=== PATIENT | male | born 1960 | race Hispanic/Latino ===

== ENCOUNTER 2019-01-25 07:06 | Observation (INO) | payer SELFPAY ==
[~2019-01-25] VITALS: Ht 165.1 cm; Wt 91.6 kg
[~2019-01-25 07:06] MED LIST: BP MEDICATIONS; LISINOPRIL-HCT1 EAC2 PO
--- OUTSIDE RECORDS SUMMARY | 2019-01-25 07:10 | XMS REPORT ---
Author Author [facility] Address Unknown Phone Unavailable Care Team Providers Care Production Tester Name Role Phone Unavailable Unavailable Problems This patient has no known problems. Allergies, Adverse Reactions, Alerts This patient has no known allergies or adverse reactions. Medications This patient has no known medications. Encounters Start Date/Time End Date/Time Encounter Type Admission Type Attending [facility] Facility Care Department Encounter ID 2019-02-02 00:00:00 2019-02-02 00:00:00 Outpatient [facility] [id number] 2018-12-25 09:08:25 2018-12-25 09:08:25 Outpatient [facility] [id number] 2018-12-24 09:05:17 2018-12-24 09:05:17 Outpatient [facility] [id number] 2018-12-18 08:08:12 2018-12-18 08:08:12 Outpatient [facility] [id number] 2018-12-16 07:25:31 2018-12-16 07:25:31 Outpatient [facility] [id number] 2018-11-30 00:00:00 2018-11-30 00:00:00 Outpatient [facility] [id number] 2018 08:50:46 2018 08:50:46 Outpatient [facility] [id number] 2018-11-11 00:00:00 2018-11-11 00:00:00 Outpatient [facility] [id number] 2018-10-26 11:24:00 2018-10-26 11:24:00 Outpatient [facility] [id number] 2018-10-26 11:02:37 2018-10-26 11:02:37 Outpatient [facility] [id number] 2018-10-26 09:49:56 2018-10-26 09:49:56 Outpatient [facility] [id number] 2018-10-26 00:00:00 2018-10-26 00:00:00 Outpatient [facility] [id number] 2017-09-18 00:00:00 2017-09-18 00:00:00 Outpatient [facility] [id number] 2017-09-05 11:38:51 2017-09-05 11:38:51 Outpatient [facility] [id number] 2017-09-05 09:49:20 2017-09-05 09:49:20 Outpatient [facility] [id number] 2017-06-10 07:17:54 2017-06-10 07:17:54 Outpatient [facility] [id number] 2017-04-21 00:00:00 2017-04-21 00:00:00 Outpatient [facility] [id number] 2017-03-20 00:00:00 2017-03-20 00:00:00 Outpatient [facility] [id number] 2017-01-07 11:11:06 2017-01-07 11:11:06 Outpatient [facility] [id number] 2017-01-07 09:43:15 2017-01-07 09:43:15 Outpatient [facility] [id number] 2017-01-07 00:00:00 2017-01-07 00:00:00 Outpatient [facility] [id number]
[2019-01-25] MEDS ORDERED: ASPIRIN 81 MG CHEW TAB PO ONE ×2 (07:30→09:45)
[2019-01-25 07:51] LABS: BASOPHILS % 0.6 % (0.0-1.0); EOSINOPHILS # (AUTO) 0.2 (0.0-0.4); EOSINOPHILS % 2.6 % (0.0-6.0); HEMATOCRIT 42.7 % (38.2-49.6); HEMOGLOBIN 14.3 g/dL (14.0-18.0); LYMPHOCYTES # (AUTO) 1.6 (1.0-3.2); MEAN CORPUSCULAR HEMOGLOBIN 30.4 pg (28-32); MEAN CORPUSCULAR HGB CONC 33.5 g/dL (31-35); MEAN CORPUSCULAR VOLUME 90.9 fL (81-99); MONOCYTES # (AUTO) 0.5 (0.2-0.8); MONOCYTES % 6.8 % (4.4-11.3); NEUTROPHILS # (AUTO) 4.2 (2.1-6.9); NEUTROPHILS % 64.5 % (38.7-80.0); PLATELET COUNT 273 x10e3/uL (140-360); RED CELL DISTRIBUTION WIDTH 12.5 % (11.7-14.4)
[2019-01-25 08:09] LABS: ALANINE AMINOTRANSFERASE 35 IU/L (0-55); ALBUMIN 4.1 g/dL (3.5-5.0); ALBUMIN/GLOBULIN RATIO 1.4 (0.8-2.0); ALKALINE PHOSPHATASE 103 IU/L (40-150); ANION GAP 10.5 mmol/L (8-16); BLOOD UREA NITROGEN 11 mg/dL (7-26); BUN/CREATININE RATIO 14 (6-25); CALCIUM 9.4 mg/dL (8.4-10.2); CARBON DIOXIDE 28 mmol/L (22-29); CHLORIDE 105 mmol/L (98-107); CREATINE KINASE 129 IU/L (30-200); CREATININE, SERUM 0.81 mg/dL (0.72-1.25); EST GLOMERULAR FILTRATION RATE > 60 ML/MIN (60-); GLUCOSE 105 mg/dL (74-118); POTASSIUM 3.5 mmol/L (3.5-5.1); SODIUM 140 mmol/L (136-145)
--- NOTE | 2019-01-25 09:03 | Diagnostic Imaging Report ---
EXAMINATION: CHEST SINGLE (PORTABLE) INDICATION: Chest pain COMPARISON: None FINDINGS: LINES/TUBES:EKG leads overlie the chest. LUNGS:The lungs are well-inflated. No focal consolidation or pulmonary edema. PLEURA:No pleural effusion or pneumothorax. MEDIASTINUM:The cardiomediastinal silhouette appears normal in size and shape. BONES/SOFT TISSUES:No acute osseous injury. ABDOMEN:No free air under the diaphragm. IMPRESSION: No focal pneumonia or pulmonary edema. Signed by: Diane Barragan MD on 01/25/2019 9:00 AM
[2019-01-25] MEDS ORDERED: DIOVAN80 MG PO (09:57)
[2019-01-25] MEDS ORDERED: PROVENTIL HFA6.7 GM (09:57)
[2019-01-25] MEDS ORDERED: ALBUTEROL/IPRATROPIUM 3 ML NEB NEB PRN (10:15)
[2019-01-25 11:00] VITALS: BP 130/75
--- NOTE | 2019-01-25 13:00 | NUR ---
PT RECEIVED FROM ER. EDUCATED PT ABOUT FALL PRECAUTIONS. CALL LIGHT WITH IN EASY REACH. INSTRUCTED PT TO USE CALL LIGHT FOR ALL THE NEEDS. PT VERBALIZED UNDERSTANDING. BED IS LOW AND LOCKED. SIDE RAILS X2. PT DENIES NEEDS AT THIS TIME.
--- NOTE | 2019-01-25 13:30 | NUR ---
DR. Ab BAILEY AT BEDSIDE. CONSULT DR. DARWIN FLYNN.
[2019-01-25 14:00] VITALS: BP 130/75
[2019-01-25] MEDS ORDERED: METHYLPREDNISOLONE SOD SUCC 40 MG/ML VIAL 1ML IV NR (14:00)
[2019-01-25] MEDS: LEVOFLOXACIN 500MG/D5W 100ML 100 ML IV SCH (14:31)
[2019-01-25] MEDS ORDERED: SODIUM CHLORIDE 0.9% 250ML 250 ML ONE (14:35)
[2019-01-25] MEDS: ALBUTEROL/IPRATROPIUM 3 ML NEB NEB SCH ×2 (14:46→18:55)
[2019-01-25 15:00] VITALS: BP 158/70
[2019-01-25 16:00] VITALS: BP 158/70
[2019-01-25 17:28] LABS: CREATINE KINASE MB 1.1 ng/mL (0-5.0)
--- NOTE | 2019-01-25 19:00 | NUR ---
BEDSIDE SHIFT REPORT GIVEN TO THE VIDEOGRAPHER RN. PT DENIED FURTHER NEEDS.
--- NOTE | 2019-01-25 19:28 | NUR ---
Patient received sitting up in bed. AAO x 4. Patient had no complaints of pain. Respirations even and non-labored. Fall precautions implemented. Patient instructed to call for assistance when needed. Call light within reach.
[2019-01-25 19:45] VITALS: BP 113/60
--- NOTE | 2019-01-25 20:12 | Consultation ---
DATE OF CONSULTATION: 01/25/2019 Cardiology Consultation INDICATION: Chest pain. HISTORY OF PRESENT ILLNESS: Mr. Kamara is a healthy 58-year-old gentleman, admitted by Dr. Eusebio Reardon with chest pain and shortness of breath. He has some wheezing. His chest x-ray at the time of admission showed no acute abnormality without pneumonia. Cardiac enzymes are negative. EKG is normal. I have been asked to assess him further. PAST MEDICAL HISTORY: Hypertension. SOCIAL HISTORY: No smoking or drinking. MEDICATIONS: Reviewed. REVIEW OF SYSTEMS: Negative except as dictated in the History of Present Illness. PHYSICAL EXAMINATION: VITAL SIGNS: Afebrile, heart rate 60, blood pressure 130/75, and O2 saturation is 94%. CARDIOVASCULAR: Regular rhythm. S4 gallop. LUNGS: Clear to auscultation bilaterally. ABDOMEN: Soft. LABORATORY DATA: Serum creatinine is normal. Troponin is negative. EKG shows sinus rhythm. Telemetry shows sinus rhythm. ASSESSMENT: Atypical chest pain. RECOMMENDATIONS: Echocardiogram to evaluate for structural heart disease with exercise nuclear stress test once myocardial infarction has been ruled out. Recheck of cardiac enzymes. I thank, Dr. Reardon, for this consult. MD JOHN Qureshi/KRISTINE /[id number]
[2019-01-25 21:00] VITALS: BP 113/60
--- NOTE | 2019-01-25 21:57 | History and Physical ---
CHIEF COMPLAINT: 1. Cough. 2. Atypical chest pain. HISTORY OF PRESENT ILLNESS: This is a 58-year-old male with a past medical history of hypertension, who was in his usual state of health until a few weeks ago, he started developing some retrosternal chest pain with mild cough. There is no left arm pain. The pain is not increased with exertion. No shortness of breath. He has some cough. No back pain. No burning urination. No nausea. No vomiting. No diarrhea. No constipation. No hematemesis. No melena. ALLERGIES: NO KNOWN DRUG ALLERGY. PAST MEDICAL HISTORY: Hypertension. PAST SURGICAL HISTORY: History of cholecystectomy. HABITS: Denies smoking. Denies alcohol use. Denies illicit drug use. SOCIAL HISTORY: The patient is , lives with his . MEDICATIONS: He is on Diovan 80 mg p.o. daily. REVIEW OF SYSTEMS: CONSTITUTIONAL: Denies fatigue or weakness. HEENT: No diplopia. No blurring of vision. CARDIOPULMONARY: He has atypical chest pain. No shortness of breath. He has mild cough. ALIMENTARY SYSTEM: No nausea. No vomiting. GENITOURINARY: No dysuria. No hematuria. MUSCULOSKELETAL: No joint pain. CENTRAL NERVOUS SYSTEM: No focal weakness. PHYSICAL EXAMINATION: GENERAL: A 58-year-old male who is alert and oriented x3, in no gross distress. VITAL SIGNS: Temperature is 98.2, pulse 82, respiratory rate 18, blood pressure 130/84. HEENT: Head is atraumatic and normocephalic. Pupils bilaterally equal to light. Extraocular muscles intact. NECK: Supple. No JVD. No carotid bruit. LUNGS: Clear to auscultation and percussion bilaterally. No added sounds. HEART: S1 and S2. Regular rate and rhythm. No S3. No S4. No murmur. ABDOMEN: Soft, nontender. No guarding. No rigidity. EXTREMITIES: No pedal edema. Peripheral pulses 1+. CH[employer] DECORATOR: Grossly nonfocal. LABORATORY DATA: CBC, CMP normal. EKG normal sinus rhythm at 66 per minute. Chest x-ray normal. ASSESSMENT: 1. Atypical chest pain, rule out from bronchitis, rule out from gastroesophageal reflux disease, rule out from angina. 2. Hypertension. PLAN: Admit the patient to telemetry. IV Levaquin 500 mg daily, DuoNeb q.6 hours, Solu-Medrol 40 mg x1, and Protonix 40 mg daily. Cardiology consult with Dr. Toussaint. Case discussed with the patient and , total condition and prognosis. MD SHANNAN Castro/KRISTINE /[id number]
[2019-01-26] VITALS (7 sets, daily range): BP systolic 104–144; BP diastolic 56–78
--- NOTE | 2019-01-26 00:24 | NUR ---
Blood specimen sent to lab for analysis of cardiac enzymes.
[2019-01-26] MEDS: ALBUTEROL/IPRATROPIUM 3 ML NEB NEB SCH ×4 (01:15→19:30)
[2019-01-26 04:13] LABS: CREATINE KINASE 78 IU/L (30-200)
[2019-01-26 05:34] LABS: CHOL/HDL RATIO 6.7 (3.9-4.7)
[2019-01-26 06:19] LABS: FREE T4 (FREE THYROXINE) 0.77 ng/dL (0.8-1.8); THYROID STIMULATING HORMONE 0.593 uIU/mL (0.350-4.940)
--- NOTE | 2019-01-26 07:00 | NUR ---
Patient resting comfortably. Patient denies needs at this time. Shift report given to oncoming nurse.
--- NOTE | 2019-01-26 07:04 | NUR ---
walking rounds completed, received change of shift report from night clerk auditor RN, pt awake, alert, respirations even and nonlabored, no signs of distress.
[2019-01-26] MEDS: PANTOPRAZOLE SOD 40 MG TABEC PO SCH (07:30)
--- NOTE | 2019-01-26 08:36 | NUR ---
Spoke with Dr. Reardon regarding plan. Pt currently pending stress test today. Will discharge home if negative. Rx in chart.
[2019-01-26] MEDS: LEVOTHYROXINE SODIUM 25 MCG TABLET PO SCH (08:45)
[2019-01-26] MEDS: ASPIRIN 81 MG ENTERIC COATED PO SCH (09:00)
[2019-01-26] MEDS: VALSARTAN 80 MG TAB PO SCH (09:00)
[2019-01-26] MEDS ORDERED: ASPIRIN 325 MG TAB EC PO SCH ×2 (09:00)
[2019-01-26] MEDS ORDERED: POTASSIUM CHLORIDE 10MEQ EA PO ONE (09:10)
--- NOTE | 2019-01-26 09:19 | NUR ---
pt wheeled down to Nuclear Medicine for stress test via wheelchair; pt awake, alert, ambulatory, no s/s distress; left in stable condition.
[2019-01-26] MEDS ORDERED: REGADENOSON 0.4 MG/5 ML SYR IV ONE (09:46)
--- NOTE | 2019-01-26 11:13 | NUR ---
spoke with RT Edward regarding need for home O2 evaluation on pt prior to discharge.
--- NOTE | 2019-01-26 11:53 | NUR ---
PT ARRIVED BACK ON THE UNIT S/P STRESS TEST; PT AWAKE, ALERT, ORIENTED, BEING WHEELED BACK TO ROOM, IN STABLE CONDITION.
--- NOTE | 2019-01-26 15:05 | NUR ---
Visit made by the Spiritual Care Department Pastoral Visitor, Magaly Vigil. PV provided pastoral presence, prayer, hospitality, and supportive listening. Pastoral Visitor informed pt/family of the scope of Guest Service Host Services and availability. TAYLOR RUIZ Machine Slat Basket Maker Spiritual Care Department O: [phone] Pager: [phone] ([phone] number calling from)
[2019-01-26] MEDS: LEVOFLOXACIN 500MG/D5W 100ML 100 ML IV SCH (15:09)
--- NOTE | 2019-01-26 15:15 | NUR ---
Stress test completed. Pending results for discharge.
--- NOTE | 2019-01-26 17:30 | Myoview Stress Test ---
DATE OF STUDY: 01/25/2019 13:31:00 Stress Test - Treadmill ONLY PROCEDURE: Lexiscan nuclear stress test. TECHNIQUE: The patient was stressed using 1 minute intravenous infusion of Lexiscan. Rest and stress Myoview imaging was obtained. Resting heart rate 108 beats per minute, resting blood pressure 138/84. Following Lexiscan infusion, no EKG changes noted. Both nuclear imaging and resting stress is normal, and normal contractility of the left ventricle. CONCLUSIONS: 1. Normal Lexiscan nuclear stress test without evidence of ischemia or infarction. 2. Left ventricular ejection fraction 68%. MD JOHN Qureshi/MODL /[id number]
--- NOTE | 2019-01-26 19:20 | NUR ---
Patient received lying in bed. AAO x 4. No acute distress noted. master welder in place. Safety measures in place. Call light within reach.
[2019-01-26] MEDS ORDERED: ATORVASTATIN 10 MG TAB PO SCH (21:00)
[2019-01-27] MEDS: ALBUTEROL/IPRATROPIUM 3 ML NEB NEB SCH ×2 (00:30→07:10)
[2019-01-27 00:58] VITALS: BP 121/59
[2019-01-27 04:47] VITALS: BP 127/66
[2019-01-27] MEDS: LEVOTHYROXINE SODIUM 25 MCG TABLET PO SCH (06:15)
--- NOTE | 2019-01-27 07:00 | NUR ---
Patient resting comfortably. Shift report given to oncoming nurse.
--- NOTE | 2019-01-27 07:06 | NUR ---
received change of shift report, walking rounds completed, pt resting in bed, respirations even and nonlabored, no s/s distress.
[2019-01-27 08:06] VITALS: BP_SYST 143; BP_SYST 145; BP_DIAS 63; BP_DIAS 76
[2019-01-27 08:07] VITALS: BP 127/66
--- NOTE | 2019-01-27 08:21 | NUR ---
GAVE PACKET OF INFORMATION WITH COMM[employer]ITY [employer] FOR ASSISTANCE WITH LOW TO NO INCOME TO PATIENT. RESOURCES THAT PATIENT MAY BE ABLE TO FOLLOW UP UPON DISCHARGE. PT EDUCATED ON EACH RESOURCE AND UNDERSTANDING HOW TO FOLLOW UP TO SEE IF QUALIFIED FOR EACH RESOURCE.
[2019-01-27] MEDS: PANTOPRAZOLE SOD 40 MG TABEC PO SCH (08:22)
[2019-01-27] MEDS: ASPIRIN 81 MG ENTERIC COATED PO SCH (08:22)
[2019-01-27] MEDS: VALSARTAN 80 MG TAB PO SCH (08:23)
--- NOTE | 2019-01-27 10:14 | Progress Note ---
DATE: Cardiology Progress Note SUBJECTIVE: The patient is feeling better. Denies any typical angina. Reports some phlegm with cough and congestion. OBJECTIVE: VITAL SIGNS: Temperature is 96.8, heart rate is 80, respirations are 18, blood pressure is 143/76, oxygen saturation 97% on room air. GENERAL: Well appearing, no apparent distress. CARDIOVASCULAR: Regular rate and rhythm. LUNGS: Clear to auscultation. ABDOMEN: Soft, nontender, nondistended. EXTREMITIES: No clubbing, cyanosis or edema. VASCULAR: 2+ pulses. LABORATORY DATA: Reviewed. Negative troponins. LDL is 185. Stress test showed no myocardial ischemia. Echocardiogram showed preserved left ventricular systolic function. IMPRESSION: 1. Atypical chest pain. 2. Hypertension. 3. Hyperlipidemia. RECOMMENDATIONS: The patient is ruled out for acute myocardial infarction. His echocardiogram and stress test were both normal. His LDL remains elevated. Increase atorvastatin to 40 mg. Continue antihypertensives. The patient may be discharged from a cardiovascular standpoint with outpatient followup. Pete Xiao DO BM/MODL /[id number]
[2019-01-27 11:47] VITALS: BP 137/86
[2019-01-27] MEDS ORDERED: LEVOTHYROXINE50 MCG PO (13:45)
[2019-01-27] MEDS ORDERED: LEVAQUIN500 MG PO (13:46)
[2019-01-27] MEDS ORDERED: PANTOPRAZOLE SO40 MG PO (13:47)
[2019-01-27] MEDS ORDERED: CRESTOR10 MG PO (13:47)
== END 2019-01-27 14:22 | disposition home or self-care (01) ==
LOC: ER 07:06 → ERHOLD 09:52 → MED/SURG2 11:19
PROVIDERS: ADMIT Internal Medicine; ATTEND Internal Medicine
DX: R07.89 Other chest pain (principal); I10 Essential (primary) hypertension; E03.9 Hypothyroidism, unspecified; E78.5 Hyperlipidemia, unspecified
CPT/HCPCS: 36415; 71045; 78452; 80053; 80061; 82550 ×2; 82553 ×2; 83036; 84439; 84443; 84484 ×2; 85025; 93005; 93017; 93306; 94640 ×5; 99284; A9502; G0378 ×3; J1956 ×2; J2785; J2920; J7050; S0164